=== PATIENT | male | born 1970 | race Caucasian/White ===

== ENCOUNTER 2020-06-17 12:05 | Emergency (ER) | payer OTHER ==
[2020-06-17 12:15] VITALS: PULSE 79; TEMP 97.8; BMI 23.7
[2020-06-17 12:51] VITALS: BP 142/96
== END 2020-06-17 13:15 | disposition home or self-care (01) ==
LOC: FER 12:05
DX: R23.3 Spontaneous ecchymoses (principal)
CPT/HCPCS: 73090-TC-RT-FY; 99283-25